=== PATIENT | female | born 1995 | race Caucasian/White ===

== ENCOUNTER 2024-01-04 17:04 | Emergency (ER) | payer OTHER ==
[~2024-01-04] VITALS: Ht 175.3 cm; Wt 76.4 kg
[2024-01-04 18:09] LABS: HEMATOCRIT 34.4 % (36.0-47.0); MEAN CORPUSCULAR HEMOGLOBIN 31.3 pg (27.0-33.0); MEAN CORPUSCULAR HGB CONC 34.9 g/dl (32.0-36.5); MEAN CORPUSCULAR VOLUME 89.8 fl (80.0-96.0); PLATELET COUNT, AUTOMATED 207 10^3/uL (150-450); RED BLOOD COUNT 3.83 10^6/uL (4.00-5.40); WHITE BLOOD COUNT 9.6 10^3/uL (4.0-10.0)
[2024-01-04 18:10] LABS: BASO % 0.2 % (0.0-1.0); EOS % 0.4 % (0.0-3.0); LYMPH # 2.1 10^3/uL (1.5-5.0); LYMPH % 21.6 % (24.0-44.0); MONO # 0.7 10^3/uL (0.0-0.8); NEUTROPHILS # 6.8 10^3/uL (1.5-8.5); NEUTROPHILS % 70.5 % (36.0-66.0)
[2024-01-04 18:26] LABS: BLOOD UREA NITROGEN 7 MG/DL (9-23); CALCIUM LEVEL 9.1 MG/DL (8.5-10.1); CARBON DIOXIDE LEVEL 22 MMOL/L (20-31); CHLORIDE LEVEL 107 MMOL/L (98-107); CREATININE FOR GFR 0.69 MG/DL (0.55-1.30); GLOMERULAR FILTRATION RATE > 60.0 (>60); GLUCOSE, FASTING 73 MG/DL (60-100); POTASSIUM SERUM 3.6 MMOL/L (3.5-5.1); SODIUM LEVEL 137 MMOL/L (136-145)
[2024-01-04 18:42] LABS: HCG, SERUM QUANTITATIVE 73059.5 MIU/ML (<4.2)
[2024-01-04 21:55] LABS: Trichomonas vaginalis (AMP) NOT DETECTED (NEGATIVE)
[2024-01-04 22:05] VITALS: BP 130/71; TEMP 98.2; O2SAT 100
[2024-01-04 22:18] LABS: GC DNA AMPLIFICATION NEGATIVE (NEGATIVE)
== END 2024-01-04 22:08 | disposition home or self-care (01) ==
LOC: M ED 17:04
DX: O20.0 Threatened abortion (principal); Z88.2 Allergy status to sulfonamides; Z88.5 Allergy status to narcotic agent; Z3A.15 15 weeks gestation of pregnancy

== ENCOUNTER 2024-02-04 11:02 | Emergency (ER) | payer OTHER ==
[~2024-02-04] VITALS: Ht 175.3 cm; Wt 78.5 kg
[2024-02-04] MEDS ORDERED: ONDA8TAB8 PO (11:14)
[2024-02-04] MEDS ORDERED: PROM25TA12 PO (11:14)
[2024-02-04] MEDS ORDERED: PREN27TA3 PO (11:14)
[2024-02-04] MEDS ORDERED: RA N1TAB PO (11:14)
[2024-02-04] MEDS ORDERED: OMEG10002 PO (11:14)
[2024-02-04 12:58] VITALS: BP 118/72; TEMP 98.1; O2SAT 98
== END 2024-02-04 13:00 | disposition home or self-care (01) ==
LOC: M ED 11:02
DX: O26.892 Other specified pregnancy related conditions, second trimester (principal); Z3A.19 19 weeks gestation of pregnancy; Z88.2 Allergy status to sulfonamides; Z88.5 Allergy status to narcotic agent; Z79.810 Long term (current) use of selective estrogen receptor modulators (SERMs); Z79.83 Long term (current) use of bisphosphonates; Z79.899 Other long term (current) drug therapy

== ENCOUNTER 2024-03-11 22:49 | Outpatient (CLI) | payer OTHER ==
[~2024-03-11] VITALS: Ht 175.3 cm; Wt 82.5 kg
[~2024-03-11 22:49] MED LIST: OMEG10002 PO; ONDA-284 PO; PREN27TA3 PO; PROM25TA12 PO; RA N1TAB PO
[2024-03-11 23:09] VITALS: BP 121/75
== END 2024-03-11 23:40 | disposition home or self-care (01) ==
LOC: M LDO 22:49
PROVIDERS: ATTEND Advanced Practice Midwife
DX: O36.8120 Decreased fetal movements, second trimester, not applicable or unspecified (principal); Z3A.24 24 weeks gestation of pregnancy
CPT/HCPCS: 59025; G0463

== ENCOUNTER 2024-04-11 17:58 | Outpatient (CLI) | payer OTHER ==
[~2024-04-11] VITALS: Ht 175.3 cm; Wt 85.4 kg
[2024-04-11 18:19] VITALS: BP 124/83
[2024-04-11] MEDS ORDERED: HOME MED LIST COMPLETE! XX SCH (18:25)
[2024-04-11] MEDS ORDERED: UNIS25TA3 PO (18:25)
[2024-04-11] MEDS ORDERED: ASPI81CH33 PO (18:25)
[2024-04-11 19:59] VITALS: BP 111/71
== END 2024-04-11 20:00 | disposition home or self-care (01) ==
LOC: M LDO 17:58
PROVIDERS: ATTEND Specialist
DX: O26.893 Other specified pregnancy related conditions, third trimester (principal); R10.84 Generalized abdominal pain; Z3A.29 29 weeks gestation of pregnancy
CPT/HCPCS: 59025; G0463

== ENCOUNTER → 2024-04-27 | Outpatient (CLI) | payer OTHER ==
[~2024-04-27] MED LIST changes: +ASPI81CH33 PO; +UNIS25TA3 PO
[2024-04-27 16:30] LABS: HEMOGLOBIN 12.2 g/dl (12.0-15.5); MEAN CORPUSCULAR HEMOGLOBIN 33.2 pg (27.0-33.0); MEAN CORPUSCULAR HGB CONC 33.9 g/dl (32.0-36.5); MEAN CORPUSCULAR VOLUME 97.8 fl (80.0-96.0); PLATELET COUNT, AUTOMATED 212 10^3/uL (150-450); RED BLOOD COUNT 3.68 10^6/uL (4.00-5.40); WHITE BLOOD COUNT 11.8 10^3/uL (4.0-10.0)
[2024-04-27 17:48] LABS: GC DNA AMPLIFICATION NEGATIVE (NEGATIVE)
== END ==
LOC: M PLALAB 10:48
PROVIDERS: ATTEND Advanced Practice Midwife
DX: Z34.93 Encounter for supervision of normal pregnancy, unspecified, third trimester (principal); Z3A.00 Weeks of gestation of pregnancy not specified

== ENCOUNTER → 2024-05-28 | Outpatient (REF) | payer OTHER | LOC: M SFHCWAGY 12:17 | PROVIDERS: ATTEND Advanced Practice Midwife | DX: Z36.85 Encounter for antenatal screening for Streptococcus B (principal); Z3A.35 35 weeks gestation of pregnancy ==

== ENCOUNTER 2024-06-09 12:15 | Outpatient (CLI) | payer OTHER ==
[~2024-06-09] VITALS: Ht 175.3 cm; Wt 90.6 kg
[2024-06-09] MEDS ORDERED: TUMS500C PO (12:45)
[2024-06-09] MEDS ORDERED: B-650TAB2 PO (12:45)
[2024-06-09] MEDS ORDERED: ACET-897 PO (12:45)
[2024-06-09] MEDS ORDERED: HOME MED LIST COMPLETE! XX SCH (12:45)
[2024-06-09 12:50] VITALS: BP 123/81; O2SAT 97
[2024-06-09 14:49] VITALS: BP 124/74
[2024-06-09 15:14] LABS: HEMATOCRIT 37.8 % (36.0-47.0); HEMOGLOBIN 13.4 g/dl (12.0-15.5); MEAN CORPUSCULAR HEMOGLOBIN 33.3 pg (27.0-33.0); MEAN CORPUSCULAR HGB CONC 35.4 g/dl (32.0-36.5); MEAN CORPUSCULAR VOLUME 93.8 fl (80.0-96.0); PLATELET COUNT, AUTOMATED 196 10^3/uL (150-450); RED BLOOD COUNT 4.03 10^6/uL (4.00-5.40); WHITE BLOOD COUNT 11.1 10^3/uL (4.0-10.0)
[2024-06-09 15:26] LABS: INR 0.97; PARTIAL THROMBOPLASTIN TIME 24.6 SECONDS (24.8-34.2); PROTHROMBIN TIME 12.6 SECONDS (12.5-14.5)
[2024-06-09 15:42] LABS: ALBUMIN 2.8 G/DL (3.2-5.2); ALKALINE PHOSPHATASE 162 U/L (46-116); ALT/SGPT 19 U/L (7.0-40); AST/SGOT 21 U/L (<34); BILIRUBIN,TOTAL 0.6 MG/DL (0.3-1.2); BLOOD UREA NITROGEN 6 MG/DL (9-23); CALCIUM LEVEL 9.6 MG/DL (8.5-10.1); CARBON DIOXIDE LEVEL 22 MMOL/L (20-31); CHLORIDE LEVEL 108 MMOL/L (98-107); CREATININE FOR GFR 0.83 MG/DL (0.55-1.30); GLOMERULAR FILTRATION RATE > 60.0 (>60); GLUCOSE, FASTING 71 MG/DL (60-100); POTASSIUM SERUM 3.8 MMOL/L (3.5-5.1); SODIUM LEVEL 139 MMOL/L (136-145); TOTAL PROTEIN 5.9 G/DL (5.7-8.2)
[2024-06-09 16:37] VITALS: BP 124/81; O2SAT 97
[2024-06-09 16:39] VITALS: O2SAT 97
[2024-06-09 18:00] VITALS: BP 116/67
[2024-06-09 18:01] VITALS: O2SAT 98
== END 2024-06-09 18:10 | disposition home or self-care (01) ==
LOC: M LDO 12:15
PROVIDERS: ATTEND Obstetrics & Gynecology
DX: O26.893 Other specified pregnancy related conditions, third trimester (principal); R10.812 Left upper quadrant abdominal tenderness; R10.814 Left lower quadrant abdominal tenderness; M25.552 Pain in left hip; M25.572 Pain in left ankle and joints of left foot; Y92.9 Unspecified place or not applicable; Y93.9 Activity, unspecified; Y99.9 Unspecified external cause status; Z3A.37 37 weeks gestation of pregnancy; Z88.2 Allergy status to sulfonamides; Z88.5 Allergy status to narcotic agent
CPT/HCPCS: 36415; 59025; 76811; 76820; 80053; 85027; 85384; 85460; 85610; 85730; G0463

== ENCOUNTER 2024-06-19 09:36 | Inpatient (IN) | payer OTHER ==
[2024-06-19] VITALS (20 sets, daily range): BP systolic 101–151; BP diastolic 55–93
[~2024-06-19] VITALS: Ht 175.3 cm; Wt 92.5 kg
[~2024-06-19 09:36] MED LIST changes: +ACET-897 PO; +B-650TAB2 PO; +TUMS500C PO
[2024-06-19] MEDS ORDERED: HOME MED LIST COMPLETE! XX SCH (10:00)
[2024-06-19 10:50] LABS: HEMATOCRIT 37.7 % (36.0-47.0); HEMOGLOBIN 13.2 g/dl (12.0-15.5); MEAN CORPUSCULAR HEMOGLOBIN 32.6 pg (27.0-33.0); MEAN CORPUSCULAR VOLUME 93.1 fl (80.0-96.0); PLATELET COUNT, AUTOMATED 209 10^3/uL (150-450); RED BLOOD COUNT 4.05 10^6/uL (4.00-5.40)
[2024-06-19] MEDS ORDERED: TRANEXAMIC ACID INJection 1,000 MG in NS 100 ML IV PRN (10:50)
[2024-06-19] MEDS ORDERED: METHYLERGONOVINE MALEATE 0.2MG/ML 1ML VIAL IM PRN (10:50)
[2024-06-19] MEDS ORDERED: LACTATED RINGER'S 1000 ML IV PRN (10:50)
[2024-06-19] MEDS ORDERED: OXYTOCIN DRIP 30 UNITS in IV 1 EA IV PRN (10:50)
[2024-06-19] MEDS ORDERED: CARBOPROST TROMETHAMINE 250 MCG/ML AMP IM PRN (10:50)
[2024-06-19] MEDS: miSOPROStol 50MCG 1/2 TABLET BUC ONE ×2 (11:00→15:40)
[2024-06-19 11:54] LABS: HEPATITIS C VIRUS ABY INDEX < 0.02 INDEX (<0.8)
[2024-06-19] MEDS: OXYTOCIN DRIP 30 UNITS in IV 1 EA IV SCH (21:01)
[2024-06-19] MEDS: LR 1,000 ML IV SCH (21:02)
[2024-06-19] MEDS ORDERED: LR 500 ML IV PRN (22:35)
[2024-06-19] MEDS ORDERED: ONDANSETRON 4MG 2ML VIAL IV PRN (22:35)
[2024-06-19] MEDS ORDERED: NALOXONE INJ 0.4MG/1ML VIAL IV PRN (22:35)
[2024-06-19] MEDS ORDERED: diphenhydrAMINE 50MG/ML VIAL IV PRN (22:35)
[2024-06-19] MEDS ORDERED: EPIDURAL/PCA KEYS XX PRN (22:35)
[2024-06-19] MEDS: FENTANYL/ROPIVACAINE/NACL BAG 100 ML EPIDURAL SCH (23:08)
[2024-06-20] VITALS (35 sets, daily range): BP systolic 100–138; BP diastolic 56–91; O2SAT 98
[2024-06-20] MEDS: ePHEDrine SULFATE 25 MG/5 ML(5MG/ML) SYRINGE IVP PRN (01:25)
[2024-06-20] MEDS ORDERED: LIDOCAINE 1% MDV 20ML VIAL As Ordered ONE (08:45)
[2024-06-20] MEDS: LIDOCAINE 1% MDV 20ML VIAL SC ONE (08:56)
[2024-06-20] MEDS ORDERED: METHYLERGONOVINE MALEATE 0.2 MG TAB PO PRN (09:25)
[2024-06-20] MEDS ORDERED: IBUPROFEN 600MG TAB PO PRN (09:25)
[2024-06-20] MEDS: LIDOCAINE 1% MDV 20ML VIAL INFIL ONE (09:25)
[2024-06-20] MEDS ORDERED: ACETAMINOPHEN TAB 650MG DOSE (2X325MG) PO PRN (09:25)
[2024-06-20] MEDS ORDERED: RHO(D) IMMUNE GLOBULIN/MALTOSE 500MCG(2500IU)/2.2ML VIAL (WINRHO) IM SCH (09:25)
[2024-06-20] MEDS: IBUPROFEN 800 MG TAB PO PRN (11:30)
[2024-06-20] MEDS: ONDANSETRON 4MG 2ML VIAL IV PRN (13:26)
[2024-06-20] MEDS: ACETAMINOPHEN 500 MG TAB PO PRN (13:34)
[2024-06-20] MEDS: DIBUCAINE 1% OINTMENT 30GM TOP PRN (13:38)
[2024-06-21 06:22] VITALS: BP 118/74; O2SAT 97
[2024-06-21] MEDS: PRENATAL VITAMINS CHEWABLE TABLET PO SCH (09:45)
[2024-06-21] MEDS: ANUSOL HC CREAM 30GM TOP SCH (09:46)
[2024-06-21 18:35] VITALS: BP 129/79; O2SAT 98
[2024-06-22 05:54] VITALS: BP 118/78; O2SAT 98
[2024-06-22] MEDS: MEASLES,MUMPS,RUBELLA VACCINE INJ (MMR-II) SC.IMMUN ONE (09:00)
[2024-06-22] MEDS: DOCUSATE SODIUM 100MG CAPSULE PO PRN (10:14)
[2024-06-22] MEDS ORDERED: ACET-683 PO (11:57)
[2024-06-22] MEDS ORDERED: IBUP80TA PO (11:57)
== END 2024-06-22 17:30 | disposition home or self-care (01) | DRG 807 ==
LOC: M LDI 09:36 → M OBS 06-20 13:20
PROVIDERS: ADMIT Obstetrics & Gynecology; ATTEND Obstetrics & Gynecology
PROC: 3E0P7VZ Introduction of Hormone into Female Reproductive, Via Natural or Artificial Opening (ICD-10-PCS; 2024-06-19)
PROC: 10D17Z9 Manual Extraction of Products of Conception, Retained, Via Natural or Artificial Opening (ICD-10-PCS; principal; 2024-06-20)
PROC: 0KQM0ZZ Repair Perineum Muscle, Open Approach (ICD-10-PCS; 2024-06-20)
PROC: 10E0XZZ Delivery of Products of Conception, External Approach (ICD-10-PCS; 2024-06-20)
DX: O36.63X0 Maternal care for excessive fetal growth, third trimester, not applicable or unspecified (principal); Z37.0 Single live birth; Z3A.39 39 weeks gestation of pregnancy; O73.0 Retained placenta without hemorrhage; O70.1 Second degree perineal laceration during delivery